=== PATIENT | male | born 1960 ===

== ENCOUNTER 2021-06-05 22:38 | Outpatient (REF) | payer SELFPAY ==
[2021-06-06 20:39] LABS: COVID-19 RT-PCR UVMMC Result Negative (Negative)
== END 2021-06-05 22:39 | disposition home or self-care (01) ==
LOC: LBN 22:38
PROVIDERS: Visit Provider Internal Medicine
DX: Z20.822 Contact with and (suspected) exposure to COVID-19 (principal)
CPT/HCPCS: U0003

== ENCOUNTER 2021-06-09 21:56 | Outpatient (REF) | payer SELFPAY ==
[2021-06-10 21:22] LABS: COVID-19 RT-PCR UVMMC Result Negative (Negative)
== END 2021-06-09 21:57 | disposition home or self-care (01) ==
LOC: LBN 21:56
PROVIDERS: Visit Provider Internal Medicine
DX: Z20.822 Contact with and (suspected) exposure to COVID-19 (principal)
CPT/HCPCS: U0003